=== PATIENT | male | born 1935 | race Caucasian/White ===

== ENCOUNTER 2018-09-15 13:40 | Inpatient (IN) ==
[2018-09-15 15:35] LABS: Basophils % 0.6 % (0.0-0.8); Hematocrit 51.7 VOL% (42.0-52.0); Hemoglobin 16.3 GM/DL (14.0-18.0); Immature Granulocytes % 0.8 %; Immature Granulocytes Absolute 0.04 #; Lymphocytes # 0.2 10*3/uL (1.4-4.0); Lymphocytes % 4.4 % (21.2-54.2); Mean Corpuscular HGB Conc 31.5 GM/DL (32-36); Mean Corpuscular Hemoglobin 31 PG (27-34); Mean Corpuscular Volume 98.1 FL (87-102); Mean Platelet Volume 9.9 FL (9.6-12.0); Monocytes # 0.2 10*3/uL (0.11-0.8); Monocytes % 4.4 % (1.7-12.7); Neutrophils # 4.5 10*3/uL (1.4-7.4); Neutrophils % 89.8 % (38.7-73.9); Platelet Count 86 T/CUMM (130-400); Red Blood Count 5.27 MC/CUMM (3.8-5.5); Red Cell Distribution Width 14.6 % (9.3-17.3)
[2018-09-15 16:07] LABS: Bilirubin,Total 1.1 MG/DL (0.2-1.0); Calcium 8.6 MG/DL (8.5-10.1); Potassium 4.6 MMOL/L (3.5-5.1)
[2018-09-15 17:23] LABS: Band Neutrophils 8 % (0-10); Lymphocytes 6 % (20-55); Platelet Estimate Decreased; Segmented Neutrophils 83 % (50-85)
[2018-09-15 17:24] LABS: Anisocytosis Slight; Macrocytosis Slight; Polychromasia Slight
[2018-09-15 17:25] LABS: Total Cells Counted 100
[2018-09-15] MEDS ORDERED: ONDANSETRON 4 MG/2 ML VIAL IV STA (18:16)
[2018-09-15] MEDS ORDERED: methylPREDNISolone SOD SUC 125 MG/2 ML VIAL IV STA (18:16)
[2018-09-15] MEDS ORDERED: LEVOFLOXACIN INJ 750 MG in PREMIX 1 EACH IV STA (18:16)
[2018-09-15] MEDS ORDERED: ALBUTEROL 2.5 MG/3 ML NEB RESP TX SCH (18:30)
[2018-09-15] MEDS ORDERED: ALBUTEROL 2.5 MG/3 ML NEB RESP TX PRN (20:00)
[2018-09-15] MEDS ORDERED: ONDANSETRON 4 MG/2 ML VIAL IV PRN (20:05)
[2018-09-15] MEDS ORDERED: DEXTROSE 50% 25 GM/50 ML SYRINGE IV PRN (20:05)
[2018-09-15] MEDS ORDERED: ACETAMINOPHEN 325 MG TABLET PO PRN (20:05)
[2018-09-15] MEDS ORDERED: guaiFENesin/DM ER 600-30 MG TABLET PO PRN (20:05)
[2018-09-15] MEDS ORDERED: GLUCAGON 1 MG VIAL IM PRN (20:05)
[2018-09-15] MEDS ORDERED: BUDESONIDE 0.5 MG/2 ML NEB RESP TX STA (20:35)
[2018-09-15] MEDS: ARFORMOTEROL 15 MCG/2 ML NEB RESP TX SCH (21:22)
[2018-09-15] MEDS: DORNASE ALFA 2.5 MG/2.5 ML VIAL RESP TX SCH (21:22)
[2018-09-15] MEDS: ALBUTEROL/IPRATROPIUM 3 ML NEB RESP TX SCH (23:00)
[2018-09-15] MEDS: POTASSIUM CHLORIDE 10 MEQ TABLET PO SCH (23:05)
[2018-09-15] MEDS: DOCUSATE SODIUM 100 MG CAPSULE PO SCH (23:05)
[2018-09-15] MEDS: SIMVASTATIN 10 MG TABLET PO SCH (23:05)
[2018-09-15] MEDS: NON-FORMULARY MEDICATION (Fluticasone Propionate [Flovent 250 Mcg Diskus] 250 MCG) INH SCH (23:09)
[2018-09-15] MEDS: INSULIN REGULAR 100 UNIT/ML SUBCUT SCH (23:56)
[2018-09-16 01:03] LABS: ABG Base Excess 10.1 MMOL/L (-2.5-2.5); ABG HCO3 40.1 MMOL/L (20-26); ABG Oxygen Saturation 92.9 % (95-100); ABG PO2 70.9 MM HG (80-95); ABG TCO2 42.5 MMOL/L (23-27); Allen Test Positive; Pt O2 Delivery Device CPAP
[2018-09-16 01:09] LABS: ABG PCO2 77.9 MM HG (35-48)
[2018-09-16] MEDS: methylPREDNISolone SOD SUC 40 MG/1 ML VIAL IV SCH ×3 (02:29→18:30)
[2018-09-16] MEDS: ALBUTEROL/IPRATROPIUM 3 ML NEB RESP TX SCH ×6 (03:25→23:48)
[2018-09-16 03:34] LABS: ABG Base Excess 11.2 MMOL/L (-2.5-2.5); ABG HCO3 41.2 MMOL/L (20-26); ABG Oxygen Saturation 96.1 % (95-100); ABG PH 7.338 (7.35-7.45); ABG PO2 88.3 MM HG (80-95); ABG TCO2 43.6 MMOL/L (23-27); Allen Test Positive; Pt O2 Delivery Device BIPAP
[2018-09-16 03:41] LABS: ABG PCO2 78.4 MM HG (35-48)
[2018-09-16 03:51] LABS: Basophils % 0.7 % (0.0-0.8); Hematocrit 48.8 VOL% (42.0-52.0); Hemoglobin 15.5 GM/DL (14.0-18.0); Immature Granulocytes % 0.5 %; Immature Granulocytes Absolute 0.02 #; Lymphocytes # 0.2 10*3/uL (1.4-4.0); Lymphocytes % 3.6 % (21.2-54.2); Mean Corpuscular HGB Conc 31.8 GM/DL (32-36); Mean Corpuscular Hemoglobin 31 PG (27-34); Mean Corpuscular Volume 97.8 FL (87-102); Mean Platelet Volume 10.1 FL (9.6-12.0); Monocytes # 0.1 10*3/uL (0.11-0.8); Monocytes % 2.4 % (1.7-12.7); Neutrophils # 3.9 10*3/uL (1.4-7.4); Neutrophils % 92.8 % (38.7-73.9); Platelet Count 87 T/CUMM (130-400); Red Blood Count 4.99 MC/CUMM (3.8-5.5); Red Cell Distribution Width 14.6 % (9.3-17.3); White Blood Count 4.2 T/CUMM (4-12)
[2018-09-16 04:10] LABS: Calcium 8.5 MG/DL (8.5-10.1); Osmolality,Calculated 304.3 MOS/KG (273-304); Potassium 4.4 MMOL/L (3.5-5.1); Risk Ratio 2.46; Thyroid Stimulating Hormone 0.338 uIU/ml (0.358-3.74); VLDL CHOLESTEROL 19.6 MG/DL
[2018-09-16 04:25] LABS: Band Neutrophils 2 % (0-10); Lymphocytes 4 % (20-55); Segmented Neutrophils 94 % (50-85); Total Cells Counted 100
[2018-09-16 04:26] LABS: Platelet Estimate Decreased
[2018-09-16] MEDS: DORNASE ALFA 2.5 MG/2.5 ML VIAL RESP TX SCH ×2 (06:57→19:42)
[2018-09-16] MEDS: ARFORMOTEROL 15 MCG/2 ML NEB RESP TX SCH ×2 (06:57→19:42)
[2018-09-16 08:05] LABS: ABG Base Excess 12.1 MMOL/L (-2.5-2.5); ABG HCO3 42.3 MMOL/L (20-26); ABG Oxygen Saturation 93.8 % (95-100); ABG PH 7.344 (7.35-7.45); ABG TCO2 44.7 MMOL/L (23-27)
[2018-09-16 08:07] LABS: ABG PCO2 79.4 MM HG (35-48)
[2018-09-16] MEDS: OLMESARTAN 20 MG TABLET PO SCH (08:58)
[2018-09-16] MEDS: FUROSEMIDE 20 MG TABLET PO SCH (08:58)
[2018-09-16] MEDS: hydroCHLOROthiazide 25 MG TABLET PO SCH (08:59)
[2018-09-16] MEDS: POTASSIUM CHLORIDE 10 MEQ TABLET PO SCH ×3 (08:59→21:53)
[2018-09-16] MEDS: RIVAROXABAN 20 MG TABLET PO SCH (08:59)
[2018-09-16] MEDS: DOCUSATE SODIUM 100 MG CAPSULE PO SCH ×2 (08:59→21:54)
[2018-09-16] MEDS: NEBIVOLOL 5 MG TABLET PO SCH (08:59)
[2018-09-16] MEDS: INSULIN REGULAR 100 UNIT/ML SUBCUT SCH ×4 (08:59→21:53)
[2018-09-16] MEDS: amLODIPine 10 MG TABLET PO SCH (08:59)
[2018-09-16] MEDS: PANTOPRAZOLE 40 MG TABLET PO SCH (08:59)
[2018-09-16 12:06] LABS: ABG Base Excess 11.1 MMOL/L (-2.5-2.5); ABG HCO3 41.1 MMOL/L (20-26); ABG Oxygen Saturation 96.1 % (95-100); ABG PO2 86.8 MM HG (80-95); ABG TCO2 43.5 MMOL/L (23-27); Pt O2 Delivery Device BIPAP
[2018-09-16 12:08] LABS: ABG PCO2 77.9 MM HG (35-48)
[2018-09-16] MEDS: NON-FORMULARY MEDICATION (Fluticasone Propionate [Flovent 250 Mcg Diskus] 250 MCG) INH SCH ×2 (14:33→21:54)
[2018-09-16] MEDS: NON-FORMULARY MEDICATION (Umeclidinium Brm/Vilanterol Tr [Anoro Ellipta] 1 PUFF) INH SCH (14:33)
[2018-09-16] MEDS ORDERED: LEVOFLOXACIN INJ 750 MG in PREMIX 1 EACH IV SCH (18:00)
[2018-09-16] MEDS: SIMVASTATIN 10 MG TABLET PO SCH (21:52)
[2018-09-16] MEDS: MONTELUKAST 10 MG TABLET PO SCH (21:52)
[2018-09-17] MEDS: methylPREDNISolone SOD SUC 40 MG/1 ML VIAL IV SCH ×3 (02:30→17:43)
[2018-09-17] MEDS: ALBUTEROL/IPRATROPIUM 3 ML NEB RESP TX SCH ×7 (03:50→23:08)
[2018-09-17 04:38] LABS: ABG Base Excess 11.2 MMOL/L (-2.5-2.5); ABG Oxygen Saturation 96.4 % (95-100); ABG PCO2 68.4 MM HG (35-48); ABG PO2 82.3 MM HG (80-95); ABG TCO2 34.3 MMOL/L (23-27); Allen Test Positive; Pt O2 Delivery Device BIPAP
[2018-09-17] MEDS: FUROSEMIDE 20 MG TABLET PO SCH (08:49)
[2018-09-17] MEDS: MONTELUKAST 10 MG TABLET PO SCH ×2 (08:49→21:08)
[2018-09-17] MEDS: amLODIPine 10 MG TABLET PO SCH (08:50)
[2018-09-17] MEDS: PANTOPRAZOLE 40 MG TABLET PO SCH (08:50)
[2018-09-17] MEDS: NEBIVOLOL 5 MG TABLET PO SCH (08:50)
[2018-09-17] MEDS: INSULIN REGULAR 100 UNIT/ML SUBCUT SCH ×4 (08:50→21:15)
[2018-09-17] MEDS: POTASSIUM CHLORIDE 10 MEQ TABLET PO SCH ×3 (08:50→21:10)
[2018-09-17] MEDS: DOCUSATE SODIUM 100 MG CAPSULE PO SCH ×2 (08:50→21:10)
[2018-09-17] MEDS: hydroCHLOROthiazide 25 MG TABLET PO SCH (08:50)
[2018-09-17] MEDS: RIVAROXABAN 20 MG TABLET PO SCH (08:50)
[2018-09-17] MEDS: OLMESARTAN 20 MG TABLET PO SCH (08:50)
[2018-09-17] MEDS: NON-FORMULARY MEDICATION (Fluticasone Propionate [Flovent 250 Mcg Diskus] 250 MCG) INH SCH ×2 (08:55→21:10)
[2018-09-17] MEDS: NON-FORMULARY MEDICATION (Umeclidinium Brm/Vilanterol Tr [Anoro Ellipta] 1 PUFF) INH SCH (08:56)
[2018-09-17] MEDS: ARFORMOTEROL 15 MCG/2 ML NEB RESP TX SCH ×3 (11:18→19:15)
[2018-09-17] MEDS: DORNASE ALFA 2.5 MG/2.5 ML VIAL RESP TX SCH ×2 (11:19→20:33)
[2018-09-17] MEDS: PIPERACILLIN/TAZOBACTAM 3,375 MG in SODIUM CHLORIDE 0.9% 100 ML IV SCH ×2 (14:10→21:10)
[2018-09-17] MEDS: SIMVASTATIN 10 MG TABLET PO SCH (21:08)
[2018-09-18] MEDS: methylPREDNISolone SOD SUC 40 MG/1 ML VIAL IV SCH ×3 (02:17→18:30)
[2018-09-18] MEDS: ALBUTEROL/IPRATROPIUM 3 ML NEB RESP TX SCH ×5 (03:04→23:48)
[2018-09-18] MEDS: PIPERACILLIN/TAZOBACTAM 3,375 MG in SODIUM CHLORIDE 0.9% 100 ML IV SCH ×3 (06:15→22:24)
[2018-09-18] MEDS: ARFORMOTEROL 15 MCG/2 ML NEB RESP TX SCH ×2 (08:05→19:26)
[2018-09-18] MEDS: DORNASE ALFA 2.5 MG/2.5 ML VIAL RESP TX SCH ×2 (08:17→19:26)
[2018-09-18] MEDS: OLMESARTAN 20 MG TABLET PO SCH (08:46)
[2018-09-18] MEDS: PANTOPRAZOLE 40 MG TABLET PO SCH (08:47)
[2018-09-18] MEDS: hydroCHLOROthiazide 25 MG TABLET PO SCH (08:47)
[2018-09-18] MEDS: amLODIPine 10 MG TABLET PO SCH (08:47)
[2018-09-18] MEDS: MONTELUKAST 10 MG TABLET PO SCH ×2 (08:47→20:37)
[2018-09-18] MEDS: DOCUSATE SODIUM 100 MG CAPSULE PO SCH ×2 (08:47→20:36)
[2018-09-18] MEDS: FUROSEMIDE 20 MG TABLET PO SCH (08:47)
[2018-09-18] MEDS: NEBIVOLOL 5 MG TABLET PO SCH (08:47)
[2018-09-18] MEDS: POTASSIUM CHLORIDE 10 MEQ TABLET PO SCH ×3 (08:47→20:37)
[2018-09-18] MEDS: RIVAROXABAN 20 MG TABLET PO SCH (08:47)
[2018-09-18] MEDS: INSULIN REGULAR 100 UNIT/ML SUBCUT SCH ×4 (08:47→21:14)
[2018-09-18] MEDS: NON-FORMULARY MEDICATION (Fluticasone Propionate [Flovent 250 Mcg Diskus] 250 MCG) INH SCH ×2 (08:48→20:41)
[2018-09-18] MEDS: NON-FORMULARY MEDICATION (Umeclidinium Brm/Vilanterol Tr [Anoro Ellipta] 1 PUFF) INH SCH (08:48)
[2018-09-18] MEDS: SIMVASTATIN 10 MG TABLET PO SCH (20:37)
[2018-09-18] MEDS: INSULIN GLARGINE 100 UNIT/ML SUBCUT SCH (21:14)
[2018-09-19] MEDS: methylPREDNISolone SOD SUC 40 MG/1 ML VIAL IV SCH ×3 (03:19→18:33)
[2018-09-19 04:15] LABS: Allen Test Positive; Pt O2 Delivery Device BIPAP
[2018-09-19 04:16] LABS: ABG Base Excess 14.4 MMOL/L (-2.5-2.5); ABG HCO3 38.1 MMOL/L (20-26); ABG Oxygen Saturation 90.3 % (95-100); ABG PCO2 63.6 MM HG (35-48); ABG PH 7.438 (7.35-7.45); ABG PO2 57.3 MM HG (80-95); ABG TCO2 35.8 MMOL/L (23-27)
[2018-09-19 04:25] LABS: Basophils # 0.1 10*3/uL (0.0-0.2); Basophils % 0.6 % (0.0-0.8); Hematocrit 49.6 VOL% (42.0-52.0); Immature Granulocytes Absolute 0.41 #; Lymphocytes # 0.6 10*3/uL (1.4-4.0); Lymphocytes % 5.9 % (21.2-54.2); Mean Corpuscular HGB Conc 32.3 GM/DL (32-36); Mean Corpuscular Hemoglobin 31 PG (27-34); Mean Corpuscular Volume 97.1 FL (87-102); Mean Platelet Volume 9.7 FL (9.6-12.0); Monocytes # 0.4 10*3/uL (0.11-0.8); Monocytes % 3.8 % (1.7-12.7); Neutrophils # 8.8 10*3/uL (1.4-7.4); Neutrophils % 85.7 % (38.7-73.9); Platelet Count 101 T/CUMM (130-400); Red Blood Count 5.11 MC/CUMM (3.8-5.5); Red Cell Distribution Width 14.2 % (9.3-17.3); White Blood Count 10.2 T/CUMM (4-12)
[2018-09-19] MEDS: ALBUTEROL/IPRATROPIUM 3 ML NEB RESP TX SCH ×6 (04:55→23:32)
[2018-09-19 05:08] LABS: Platelet Estimate Decreased
[2018-09-19 05:32] LABS: Calcium 8.4 MG/DL (8.5-10.1)
[2018-09-19 05:33] LABS: Potassium 4.1 MMOL/L (3.5-5.1)
[2018-09-19] MEDS: ARFORMOTEROL 15 MCG/2 ML NEB RESP TX SCH ×2 (07:42→18:49)
[2018-09-19] MEDS: DORNASE ALFA 2.5 MG/2.5 ML VIAL RESP TX SCH ×2 (07:47→18:54)
[2018-09-19] MEDS: PIPERACILLIN/TAZOBACTAM 3,375 MG in SODIUM CHLORIDE 0.9% 100 ML IV SCH ×3 (08:34→21:45)
[2018-09-19] MEDS ORDERED: FUROSEMIDE 40 MG/4 ML VIAL IV ONE (09:15)
[2018-09-19] MEDS: DOCUSATE SODIUM 100 MG CAPSULE PO SCH ×2 (09:18→21:15)
[2018-09-19] MEDS: MONTELUKAST 10 MG TABLET PO SCH ×2 (09:18→21:12)
[2018-09-19] MEDS: OLMESARTAN 20 MG TABLET PO SCH (09:18)
[2018-09-19] MEDS: PANTOPRAZOLE 40 MG TABLET PO SCH (09:18)
[2018-09-19] MEDS: hydroCHLOROthiazide 25 MG TABLET PO SCH (09:18)
[2018-09-19] MEDS: NEBIVOLOL 5 MG TABLET PO SCH (09:19)
[2018-09-19] MEDS: amLODIPine 10 MG TABLET PO SCH (09:19)
[2018-09-19] MEDS: RIVAROXABAN 20 MG TABLET PO SCH (09:19)
[2018-09-19] MEDS: POTASSIUM CHLORIDE 10 MEQ TABLET PO SCH ×3 (09:19→21:13)
[2018-09-19] MEDS: FUROSEMIDE 20 MG TABLET PO SCH (09:19)
[2018-09-19] MEDS: INSULIN REGULAR 100 UNIT/ML SUBCUT SCH ×4 (09:20→21:08)
[2018-09-19] MEDS: NON-FORMULARY MEDICATION (Umeclidinium Brm/Vilanterol Tr [Anoro Ellipta] 1 PUFF) INH SCH (09:20)
[2018-09-19] MEDS: NON-FORMULARY MEDICATION (Fluticasone Propionate [Flovent 250 Mcg Diskus] 250 MCG) INH SCH ×2 (09:20→21:14)
[2018-09-19] MEDS ORDERED: INSULIN REGULAR 100 UNIT/ML SUBCUT ONE (14:20)
[2018-09-19] MEDS: INSULIN GLARGINE 100 UNIT/ML SUBCUT SCH (21:10)
[2018-09-19] MEDS: SIMVASTATIN 10 MG TABLET PO SCH (21:12)
[2018-09-20] MEDS: methylPREDNISolone SOD SUC 40 MG/1 ML VIAL IV SCH ×3 (01:33→18:26)
[2018-09-20] MEDS: ALBUTEROL/IPRATROPIUM 3 ML NEB RESP TX SCH ×6 (03:35→23:20)
[2018-09-20] MEDS: PIPERACILLIN/TAZOBACTAM 3,375 MG in SODIUM CHLORIDE 0.9% 100 ML IV SCH ×3 (06:14→23:09)
[2018-09-20] MEDS: ARFORMOTEROL 15 MCG/2 ML NEB RESP TX SCH ×2 (07:34→20:13)
[2018-09-20] MEDS: DORNASE ALFA 2.5 MG/2.5 ML VIAL RESP TX SCH ×2 (07:34→20:20)
[2018-09-20] MEDS: INSULIN REGULAR 100 UNIT/ML SUBCUT SCH ×4 (08:52→20:58)
[2018-09-20] MEDS: RIVAROXABAN 20 MG TABLET PO SCH (08:53)
[2018-09-20] MEDS: NEBIVOLOL 5 MG TABLET PO SCH (08:53)
[2018-09-20] MEDS: PANTOPRAZOLE 40 MG TABLET PO SCH (08:54)
[2018-09-20] MEDS: POTASSIUM CHLORIDE 10 MEQ TABLET PO SCH ×3 (08:54→20:57)
[2018-09-20] MEDS: amLODIPine 10 MG TABLET PO SCH (08:54)
[2018-09-20] MEDS: OLMESARTAN 20 MG TABLET PO SCH (08:54)
[2018-09-20] MEDS: FUROSEMIDE 20 MG TABLET PO SCH (08:54)
[2018-09-20] MEDS: DOCUSATE SODIUM 100 MG CAPSULE PO SCH ×2 (08:54→20:57)
[2018-09-20] MEDS: MONTELUKAST 10 MG TABLET PO SCH ×2 (08:54→20:57)
[2018-09-20] MEDS: hydroCHLOROthiazide 25 MG TABLET PO SCH (08:54)
[2018-09-20] MEDS: NON-FORMULARY MEDICATION (Umeclidinium Brm/Vilanterol Tr [Anoro Ellipta] 1 PUFF) INH SCH (08:55)
[2018-09-20] MEDS: NON-FORMULARY MEDICATION (Fluticasone Propionate [Flovent 250 Mcg Diskus] 250 MCG) INH SCH ×2 (08:55→20:59)
[2018-09-20 10:48] LABS: ABG Base Excess 12.1 MMOL/L (-2.5-2.5); ABG HCO3 35.7 MMOL/L (20-26); ABG Oxygen Saturation 92.8 % (95-100); ABG PCO2 52.5 MM HG (35-48); ABG PH 7.475 (7.35-7.45); ABG PO2 63.3 MM HG (80-95); ABG TCO2 31.6 MMOL/L (23-27); Allen Test Positive; Pt O2 Delivery Device BIPAP
[2018-09-20] MEDS: SIMVASTATIN 10 MG TABLET PO SCH (20:58)
[2018-09-20] MEDS: INSULIN GLARGINE 100 UNIT/ML SUBCUT SCH (20:59)
[2018-09-21] MEDS: ALBUTEROL/IPRATROPIUM 3 ML NEB RESP TX SCH ×6 (02:25→22:28)
[2018-09-21] MEDS: methylPREDNISolone SOD SUC 40 MG/1 ML VIAL IV SCH ×3 (02:36→17:58)
[2018-09-21] MEDS: PIPERACILLIN/TAZOBACTAM 3,375 MG in SODIUM CHLORIDE 0.9% 100 ML IV SCH ×3 (06:36→22:50)
[2018-09-21] MEDS: OLMESARTAN 20 MG TABLET PO SCH (08:11)
[2018-09-21] MEDS: INSULIN REGULAR 100 UNIT/ML SUBCUT SCH ×4 (08:11→21:20)
[2018-09-21] MEDS: POTASSIUM CHLORIDE 10 MEQ TABLET PO SCH ×3 (08:12→21:19)
[2018-09-21] MEDS: NEBIVOLOL 5 MG TABLET PO SCH (08:12)
[2018-09-21] MEDS: FUROSEMIDE 20 MG TABLET PO SCH (08:12)
[2018-09-21] MEDS: PANTOPRAZOLE 40 MG TABLET PO SCH (08:12)
[2018-09-21] MEDS: RIVAROXABAN 20 MG TABLET PO SCH (08:12)
[2018-09-21] MEDS: MONTELUKAST 10 MG TABLET PO SCH ×2 (08:12→21:18)
[2018-09-21] MEDS: amLODIPine 10 MG TABLET PO SCH (08:12)
[2018-09-21] MEDS: hydroCHLOROthiazide 25 MG TABLET PO SCH (08:12)
[2018-09-21] MEDS: NON-FORMULARY MEDICATION (Umeclidinium Brm/Vilanterol Tr [Anoro Ellipta] 1 PUFF) INH SCH (08:21)
[2018-09-21] MEDS: NON-FORMULARY MEDICATION (Fluticasone Propionate [Flovent 250 Mcg Diskus] 250 MCG) INH SCH ×2 (08:21→21:20)
[2018-09-21] MEDS: DOCUSATE SODIUM 100 MG CAPSULE PO SCH ×2 (10:31→21:20)
[2018-09-21] MEDS: DORNASE ALFA 2.5 MG/2.5 ML VIAL RESP TX SCH (19:14)
[2018-09-21] MEDS: ARFORMOTEROL 15 MCG/2 ML NEB RESP TX SCH (19:17)
[2018-09-21] MEDS: INSULIN GLARGINE 100 UNIT/ML SUBCUT SCH (21:19)
[2018-09-21] MEDS: SIMVASTATIN 10 MG TABLET PO SCH (21:19)
[2018-09-22] MEDS: ALBUTEROL/IPRATROPIUM 3 ML NEB RESP TX SCH ×3 (02:28→11:10)
[2018-09-22] MEDS: methylPREDNISolone SOD SUC 40 MG/1 ML VIAL IV SCH ×2 (02:59→10:35)
[2018-09-22] MEDS: PIPERACILLIN/TAZOBACTAM 3,375 MG in SODIUM CHLORIDE 0.9% 100 ML IV SCH (06:15)
[2018-09-22] MEDS: ARFORMOTEROL 15 MCG/2 ML NEB RESP TX SCH ×2 (07:28→09:53)
[2018-09-22] MEDS: DORNASE ALFA 2.5 MG/2.5 ML VIAL RESP TX SCH ×2 (07:28→09:53)
[2018-09-22] MEDS: amLODIPine 10 MG TABLET PO SCH (08:41)
[2018-09-22] MEDS: INSULIN REGULAR 100 UNIT/ML SUBCUT SCH ×2 (08:53→11:56)
[2018-09-22] MEDS: POTASSIUM CHLORIDE 10 MEQ TABLET PO SCH (08:54)
[2018-09-22] MEDS: hydroCHLOROthiazide 25 MG TABLET PO SCH (08:54)
[2018-09-22] MEDS: OLMESARTAN 20 MG TABLET PO SCH (08:54)
[2018-09-22] MEDS: RIVAROXABAN 20 MG TABLET PO SCH (08:54)
[2018-09-22] MEDS: MONTELUKAST 10 MG TABLET PO SCH (08:54)
[2018-09-22] MEDS: FUROSEMIDE 20 MG TABLET PO SCH (08:55)
[2018-09-22] MEDS: PANTOPRAZOLE 40 MG TABLET PO SCH (08:55)
[2018-09-22] MEDS: NEBIVOLOL 5 MG TABLET PO SCH (08:55)
[2018-09-22] MEDS: DOCUSATE SODIUM 100 MG CAPSULE PO SCH (08:59)
[2018-09-22] MEDS: NON-FORMULARY MEDICATION (Fluticasone Propionate [Flovent 250 Mcg Diskus] 250 MCG) INH SCH (09:52)
[2018-09-22] MEDS: NON-FORMULARY MEDICATION (Umeclidinium Brm/Vilanterol Tr [Anoro Ellipta] 1 PUFF) INH SCH (09:52)
[2018-09-22 11:41] VITALS: BP 136/73
== END 2018-09-22 15:45 | disposition home or self-care (01) | DRG 190 ==
LOC: N.ED 13:40 → N.EDINP 20:05 → SUATTDRO 20:05 → N.TELES 20:42
PROVIDERS: ADMIT Emergency Medicine; ATTEND Internal Medicine Infectious Disease